=== PATIENT | male | born 1985 | race Caucasian/White ===

== ENCOUNTER 2017-10-30 20:02 | Emergency (ER) | payer SELFPAY ==
[2017-10-30] MEDS ORDERED: IBUPROFEN 800 MG TABLET PO ONE (21:43)
--- NOTE | 2017-10-30 22:10 | RADIOLOGY REPORT (SQ) ---
EXAM DESCRIPTION: KNEE LEFT 3 VIEWS COMPLETED DATE/TIME: 10/30/2017 10:00 pm REASON FOR STUDY: L lateral knee pain COMPARISON: None. NUMBER OF VIEWS: Three views. TECHNIQUE: AP, lateral, and sunrise patella radiographic images acquired of the left knee. LIMITATIONS: None. FINDINGS: MINERALIZATION: Normal. BONES: No acute fracture or dislocation. No worrisome bone lesions. JOINT: No effusion. SOFT TISSUES: No soft tissue swelling. No radio-opaque foreign body. OTHER: No other significant finding. IMPRESSION: NEGATIVE STUDY OF THE LEFT KNEE. NO RADIOGRAPHIC EVIDENCE OF ACUTE INJURY. TECHNICAL DOCUMENTATION: JOB ID: [id number]- All Rights Reserved Reading location - IP/workstation name: [email or web address]
--- NOTE | 2017-10-30 22:31 | ER Document Report ---
ED General - General Chief Complaint: Knee Pain Stated Complaint: KNEE INJURY Time Seen by Provider: 10/30/17 21:36 Mode of Arrival: Ambulatory Information source: Patient TRAVEL OUTSIDE OF THE [place] IN LAST 30 DAYS: No - HPI Notes: Patient is a 32-year-old otherwise healthy male presents emergency department with report of left lateral knee pain that occurred when he fell when he was working in the yard pulling on a root. The patient states he had a varus stress through the left knee and reports left lateral knee pain since that time. He does state the pain seemed to get worse as time progressed, and he actually finished working in the yard after he injured himself. He denies any head injury, neck pain, back pain, numbness, paresthesia or other injury. No hip or ankle pain. Past Medical History - General Information source: Patient - Social History Smoking Status: Current Every Day Smoker Frequency of alcohol use: Occasional Drug Abuse: None Lives with: Family Family History: None Patient has suicidal ideation: No Patient has homicidal ideation: No Renal/ Medical History: Denies: Hx Peritoneal Dialysis Review of Systems - Review of Systems Notes: REVIEW OF SYSTEMS: CONSTITUTIONAL : Denies fever, chills, CARDIOVASCULAR: Denies ankle edema. MUSCULOSKELETAL: Denies back or neck pain or stiffness. SKIN: Denies rash, lesions or sores. NEUROLOGICAL: Denies weakness or paralysis or loss of use of either side. Denies sensory loss, numbness, or tingling. ALL OTHER SYSTEMS REVIEWED AND NEGATIVE. Dictation was performed using [employer] voice recognition software Physical Exam - Vital signs Vitals: Temp Pulse Resp BP Pulse Ox 98.7 F 127 H 18 133/84 H 99 10/30/17 20:35 10/30/17 20:35 10/30/17 20:35 10/30/17 20:35 10/30/17 20:35 - Notes Notes: Exam of the left lower extremity shows nonfocal hip and ankle and foot. The patient has pain to the lateral aspect of the left knee. There is no crepitance or bony deformity. There is some pain on ligamentous stress testing to the lateral aspect but patient has a negative Lockman's. Negative Marycruz' s. No anterior drawer sign. Distally, he is neurovascularly intact. There is no proximal erythema or adenopathy noted. Course - Re-evaluation Re-evalutation: 10/30/17 22:39 Patient was given crutches and a knee immobilizer and ibuprofen. There is no obvious evidence for acute fracture or neurovascular compromise, but I cannot exclude a ligament or meniscus injury with the patient. Orthopedic follow-up as instructed. - Vital Signs Vital signs: Temp Pulse Resp BP Pulse Ox 98.7 F 127 H 18 133/84 H 99 10/30/17 20:35 10/30/17 20:35 10/30/17 20:35 10/30/17 20:35 10/30/17 20:35 Discharge - Discharge Clinical Impression: Sprain of left knee Qualifiers: Encounter type: initial encounter Involved ligament of knee: lateral collateral ligament Qualified Code(s): S83.422A - Sprain of lateral collateral ligament of left knee, initial encounter Condition: Stable Disposition: HOME, SELF-CARE Instructions: Use of Crutches ([facility]), Ice & Elevation ([facility]), Suspected Internal Knee Injury ([facility]), Knee Immobilizing Splint ([facility]) Additional Instructions: Limited activity, unable to bend at the knees and limited time on feet for the next 2 weeks due to knee sprain with possible ligament or meniscus injury. Prescriptions: Ibuprofen [Motrin 800 mg Tablet] 800 mg PO Q8H PRN #30 tab PRN Reason: Forms: Return to Work Referrals: LEMUEL JACOBS DO [ACTIVE STAFF] - 11/13/17
[2017-10-30 22:45] VITALS: BP 139/92
== END 2017-10-30 22:45 | disposition home or self-care (01) ==
LOC: ER 20:02
DX: S83.422A Sprain of lateral collateral ligament of left knee, initial encounter (principal); F17.200 Nicotine dependence, unspecified, uncomplicated; W01.10XA Fall on same level from slipping, tripping and stumbling with subsequent striking against unspecified object, initial encounter; Y92.007 Garden or yard of unspecified non-institutional (private) residence as the place of occurrence of the external cause
CPT/HCPCS: 99283; 73562; L1830

== ENCOUNTER 2019-09-24 13:54 | Emergency (ER) | payer OTHER ==
[2019-09-24 14:36] LABS: APPEARANCE,URINE CLEAR; BILIRUBIN,URINE NEGATIVE (NEGATIVE); COLOR,URINE STRAW; GLUCOSE, URINE NEGATIVE (NEGATIVE); KETONES,URINE NEGATIVE (NEGATIVE); LEUKOCYTE ESTERASE,URINE NEGATIVE (NEGATIVE); NITRITE,URINE NEGATIVE (NEGATIVE); PROTEIN,URINE NEGATIVE (NEGATIVE); URINE SPECIFIC GRAVITY 1.004; UROBILINOGEN,URINE NEGATIVE mg/dL (<2.0)
[2019-09-24 14:51] LABS: URINE AMPHETAMINES SCREEN NEGATIVE; URINE BARBITURATES SCREEN NEGATIVE; URINE BENZODIAZEPINES SCREEN NEGATIVE; URINE COCAINE SCREEN NEGATIVE; URINE MARIJUANA (THC) SCREEN NEGATIVE; URINE METHADONE SCREEN NEGATIVE
[2019-09-24 14:55] LABS: URINE PHENCYCLIDINE SCREEN NEGATIVE
[2019-09-24 14:57] LABS: ABSOLUTE EOSINOPHILS # (AUTO) 0.1 10^3/uL (0.0-0.6); ABSOLUTE LYMPHOCYTES (AUTO) 1.8 10^3/uL (0.5-4.7); ABSOLUTE MONOCYTES (AUTO) 0.5 10^3/uL (0.1-1.4); ABSOLUTE NEUT (AUTO) 5.8 10^3/uL (1.7-8.2); BASOPHILS % (AUTO) 0.4 % (0-2); EOSINOPHILS % (AUTO) 1.7 % (0-6); HEMATOCRIT 50.7 % (37.9-51.0); HEMOGLOBIN 17.9 g/dL (13.5-17.0); MEAN CORPUSCULAR HGB CONC 35.3 g/dL (32.0-36.0); MEAN CORPUSCULAR VOLUME 88 fl (80-97); MONOCYTES % (AUTO) 6.5 % (3-13); PLATELET COUNT 297 10^3/uL (150-450); RED BLOOD COUNT 5.77 10^6/uL (4.35-5.55); RED CELL DISTRIBUTION WIDTH 13.3 % (11.5-14.0); SEGMENTED NEUTROPHILS % (AUTO) 69.4 % (42-78); TOTAL CELLS COUNTED % (AUTO) 100 %; WHITE BLOOD COUNT 8.3 10^3/uL (4.0-10.5)
[2019-09-24 15:17] LABS: ALBUMIN 4.9 g/dL (3.5-5.0); ALCOHOL 274 mg/dL (NONE DETECTED); ALKALINE PHOSPHATASE 134 U/L (38-126); ANION GAP 12 (5-19); ASPARTATE AMINO TRANSFERASE 32 U/L (17-59); BILIRUBIN,DIRECT 0.2 mg/dL (0.0-0.4); BILIRUBIN,TOTAL 0.5 mg/dL (0.2-1.3); BLOOD UREA NITROGEN 12 mg/dL (7-20); CARBON DIOXIDE 24 mmol/L (22-30); CHLORIDE 106 mmol/L (98-107); GLUCOSE 98 mg/dL (75-110); POTASSIUM 4.1 mmol/L (3.6-5.0); TOTAL PROTEIN 8.1 g/dL (6.3-8.2)
[2019-09-24 15:18] LABS: ACETAMINOPHEN < 10 ug/mL (10-30); SALICYLATE < 1.0 mg/dL (2.0-20.0)
[2019-09-24] MEDS ORDERED: NICOTINE 21 MG/24 HR PATCH.TD24 TD ONE (15:25)
--- NOTE | 2019-09-24 15:34 | ER Document Report ---
ED General - General Chief Complaint: Suicidal Ideation Stated Complaint: POSSIBLE SUICIDAL IDEATION Time Seen by Provider: 09/24/19 14:06 TRAVEL OUTSIDE OF THE [place] 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 Patient states he was laid off about 3 weeks ago. He is single and lives with his brother. He drinks in excess of a pint of vodka daily. He is sporadically using cocaine, methamphetamine, and marijuana. He was addicted to opiate pain medications in the past and said that he was admitted to an inpatient detox facility in [facility] over 10 years ago and thereafter was on a Suboxone maintenance program for a number of years. Patient graduated high school and attended about 1 year of college. No service. Endorses intermittent auditory hallucinations but denies any command hallucinations or threatening content. He denies visual hallucinations. Patient is in possession of a shotgun. He says he is increasingly thinking about shooting himself. He has never attempted suicide in the past. - Related Data Allergies/Adverse Reactions: No Known Allergies Allergy (Unverified 10/30/17 22:45) Past Medical History - General Information source: Patient, Emergency Med Personnel - Social History Smoking Status: Current Every Day Smoker Chew tobacco use (# tins/day): No Frequency of alcohol use: Heavy Drug Abuse: Cocaine, Marijuana, Methamphetamine Family History: None Patient has suicidal ideation: Yes Patient has homicidal ideation: No Renal/ Medical History: Denies: Hx Peritoneal Dialysis Review of Systems - Review of Systems Notes: Constitutional: Negative for fever. HENT: Negative for sore throat. Eyes: Negative for visual changes. Cardiovascular: Negative for chest pain. Respiratory: Negative for shortness of breath. Gastrointestinal: Negative for abdominal pain, vomiting or diarrhea. Genitourinary: Negative for dysuria. Musculoskeletal: Negative for back pain. Skin: Negative for rash. Neurological: Negative for headaches, weakness or numbness. 10 point ROS negative except as marked above and in HPI. Physical Exam - Vital signs Vitals: Temp Pulse Resp BP Pulse Ox 97.7 F 95 18 145/95 H 95 09/24/19 15:07 09/24/19 15:07 09/24/19 15:07 09/24/19 15:07 09/24/19 15:07 - Notes Notes: GENERAL: Well-developed well-nourished appearing in no acute distress. Strong odor of alcohol present. SKIN: Good turgor. Flushed. HEAD: Normocephalic atraumatic. EYES: PERRLA. EOMI. Conjunctivae and sclerae clear. EARS: CANALS AND TMS CLEAR. NOSE: CLEAR. MOUTH: Moist mucosa. Good dentition. No stridor or edema. No drooling. NECK: Supple. No masses or thyromegaly. No adenopathy. Carotids 2+ without bruits. No JVD. BACK: Symmetrical without tenderness. CHEST: Respirations unlabored. Breath sounds clear and symmetrical. HEART: Regular rhythm. No murmur gallop or rub. ABDOMEN: Soft nontender without masses, organomegaly or rebound. Bowel sounds normally active. No bruits. GENITALIA: Deferred. EXTREMITIES: No edema. No calf tenderness. Cap refill less than 1.5 seconds. Dorsalis pedis and posterior tibial pulses 3+ and symmetrical. NEUROLOGICAL: GCS 15. Alert and oriented x3. Normal gait. Fluent speech. Cranial nerves II through XII intact. Sensorimotor and cerebellar normal. Normal tone. PSYCHIATRIC: Appropriate affect. Course - Re-evaluation Re-evalutation: 09/24/19 16:19 Behavioral health team obtain information from patient's mother that this man might have possibly had seizures in the past. This did not come up in the medical history that I obtained from him initially. I went back and talk with him further about the issue. He is worked for years in the construction field and says that he has had multiple "spells" that have occurred during times when he became overheated and dehydrated. These have never been identified as a true seizure disorder and he is never been treated with anticonvulsant medication. The patient feels that these episodes are probably attributable to heat prostration and I think this is likely to be the case. 09/24/19 16:21 I have petitioned this patient for IVC. We will need to get his blood alcohol level down below 100 before referral to an inpatient mental health facility. He is otherwise medically clear at this time. - Vital Signs Vital signs: Temp Pulse Resp BP Pulse Ox 97.7 F 95 18 145/95 H 95 09/24/19 15:07 09/24/19 15:07 09/24/19 15:07 09/24/19 15:07 09/24/19 15:07 - Laboratory Result Diagrams: 09/24/19 14:35 09/24/19 14:35 Laboratory results interpreted by me: 09/24/19 09/24/19 14:35 14:35 RBC 5.77 H Hgb 17.9 H Alkaline Phosphatase 134 H Salicylates < 1.0 L Acetaminophen < 10 L Discharge - Discharge Clinical Impression: Suicidal ideation, Major depression with psychotic features, Alcoholism Condition: Stable Disposition: PSYCH HOSP/UNIT
[2019-09-24] MEDS: LORAZEPAM 1 MG TABLET PO PRN ×2 (15:43→21:10)
--- NOTE | 2019-09-24 16:05 | PSYCHOLOGICAL NOTE ---
Psych Note - Psych Note Date seen by psych provider: 09/24/19 Time seen by psych provider: 14:40 Psych Note: Patient is a 34-year-old male who presents to ED via EMS with suicidal ideation. Patient states he was "about to grab my shotgun, put it in my mouth, and pulled the trigger." Patient commented that "I am done with life." Patient reports thoughts of his mom prevented him with completing suicide. Patient reports that he did not have the gun on his person at any time, that the weapon remained in the case. Patient stated "I just want to leave." Patient discussed a [place] Patient spoke about generally being able to "keep my demons at bay, will recently." Patient reports stressors of a recent job loss and loss of freedom as a result of the COVID 19 pandemic. Patient reports mental health diagnoses of depression and anxiety. Patient denies history of bipolar and schizophrenia. Patient reports that he was prescribed Klonopin "back in the day (2011). 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 Aly also prescribed patient's Suboxone. Patient denies current IV heroin use. Patient reports recent ingestion of "shrooms" AKA psilocybin. Patient reports "smoking meth" 6 days ago. Patient denies recent IV heroin use. Patient spoke of having to brains. Patient spoke of one brain being the "happy brain" and the other brain being the "crying brain." Patient occasionally referred to the "crying brain" as "the demon." Patient reports being able to " know what is real and what is not." States the "demon" is the one who "hurts others" and describes himself as "peaceful." Patient denies he would ever hurt anyone else and also denies a history of hurting others. Clinician notes patient patient frequently endorses suicidal ideation, and then discusses how "the strong brain" has more power over the "demon brain" to live. Patient would speak about how he does not want to . Patient denies a history of suicide attempts. The following information was obtained by patient's mother. 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 Mother reports patient has a mental health history of depression and "sleeplessness." Mother denies patient has a history of schizophrenia or bipolar disorder. Mother does report patient has a seizure history and she is concerned for epilepsy. Mother reports there has been no neurological exam. Mother describes patient as someone who "spirals quickly when things are good." Mother states patient becomes depressed when he is not able to "do something." Mother describes patient as housing insecure as he awaits for the COVID 19 pandemic clear so he can return to work. Mother reports patient has a history of alcohol and substance abuse. Mother reports patient not engaged in IV heroin use "for years." Patient was informed of his acceptance by [facility]. Patient was informed of transportation process. Patient ported no questions or concerns. Patient is alert and oriented to person, place, time and circumstance. Mood is labile with congruent affect evidenced by patient engaging appropriately with clinician, patient being tearful, and then euthymic mood. Patient endorses suicidal ideation. Patient denies homicidal ideation. Patient endorses delusions as evidenced by his belief he has 2 brains. Patient endorses command auditory hallucinations; however states he is able to differentiate the difference between lesions and reality. Patient reported experiencing hearing voices during evaluation. Are times that patient laughs, but that is followed by a comment that is reality based. Patient is able to engage appropriately with clinician, and participate in organized, linear conversation. Eye contact is appropriate. Conversational speech is within normal rate, tone, and prosody. Intellectual ability appears to be within average range. Attention and concentration are fair. Insight, judgment and impulse control are currently fair to poor. Impression/Plan: Patient is recommended for IVC. Patient presents to ED via EMS for suicidal ideation . Patient is experiencing acute stressor related to recent layoff due to the COVID 19 pandemic. Patient has been binge drinking in conjunction with methamphetamine and psilocybin use. This time, it is unknown if patient's current presentation is substance-induced or is the result of a mental health concern. Per report from patient and patient's mother, patient has only mental health diagnoses of depression and anxiety. Patient is considered a danger to himself as patient maintains suicidal ideation, is emotional labile, is under the influence of a mind altering substance, and has a blood alcohol is 274. At this time, patient would be unable without care, supervision, and the continued assistance of others to exercise self-control, judgment, and discretion and the conduct of his daily responsibilities. There is reasonable probability of patient suffering serious physical debilitation unless adequate treatment is given. Plan is to transfer to [facility] at 22:00. Dr. Grijalva was consulted on the care and management of this patient;attending physician is in agreement with recommendations and disposition.
[2019-09-24 21:48] VITALS: BP 138/95
--- NOTE | 2019-09-25 09:08 | EKG REPORT ---
SEVERITY:- ABNORMAL ECG - SINUS RHYTHM LEFT ANTERIOR FASCICULAR BLOCK : Confirmed by: Umm Varela MD 25-Sep-2019 09:07:42
== END 2019-09-24 22:19 ==
LOC: ER 13:54
DX: F10.20 Alcohol dependence, uncomplicated (principal); F32.3 Major depressive disorder, single episode, severe with psychotic features; R45.851 Suicidal ideations; F14.10 Cocaine abuse, uncomplicated; F12.10 Cannabis abuse, uncomplicated; F15.10 Other stimulant abuse, uncomplicated; F17.200 Nicotine dependence, unspecified, uncomplicated; R23.2 Flushing
CPT/HCPCS: 36415; 80053; 80307; 81001; 85025; 93005; 93010; 99285

== ENCOUNTER 2019-10-11 23:15 | Emergency (ER) | payer OTHER ==
[2019-10-11] MEDS ORDERED: NICOTINE 14 MG/24 HR PATCH.TD24 TD ONE (23:37)
--- NOTE | 2019-10-11 23:42 | ER Document Report ---
ED General - General TRAVEL OUTSIDE OF THE [place] IN LAST 30 DAYS: No - Related Data Home Medications: Celexa, BuSpar <ANGÉLICA ACOSTA - Last Filed: 10/12/19 00:35> <DEEPTHI SAUER - Last Filed: 10/12/19 15:52> <MAU HERNANDEZ - Last Filed: 10/12/19 16:32> - General Chief Complaint: Suicidal Ideation Stated Complaint: SUICIDAL IDEATIONS Time Seen by Provider: 10/11/19 23:29 Primary Care Provider: [facility] [Outside] - Follow up as needed - HPI Notes: Patient is a 34-year-old male who presents the emergency department for evaluation of auditory hallucinations and suicidal ideation. The patient states he was at home and he heard a growling. He states it sounds like "the ghost dog in the closet from ghost busters." He states he called his dog, Delilah, who he believes scared to the ghost dog away. He states then that he was thinking about taking a shotgun to himself, to end all of his pain. The patient then states to me that he does not have any pain, but he is still thinking of killing himself. He was recently seen in this facility, IVC was placed, and the devin ent was sent to [place]. He was started on Celexa and BuSpar. He states he has been taking those as prescribed. He states he has been abstaining from drug use, but admits he has been drinking "less than 1/5" of vodka every day. (ANGÉLICA ACOSTA) - Related Data Allergies/Adverse Reactions: No Known Allergies Allergy (Unverified 10/30/17 22:45) Past Medical History - General Information source: Patient - Social History Smoking Status: Current Every Day Smoker Frequency of alcohol use: Heavy Family History: None Renal/ Medical History: Denies: Hx Peritoneal Dialysis Psychiatric Medical History: Reports: Hx Depression <ANGÉLICA ACOSTA - Last Filed: 10/12/19 00:35> Review of Systems - Review of Systems Neurological/Psychological: See HPI -: Yes All other systems reviewed and negative <ANGÉLICA ACOSTA - Last Filed: 10/12/19 00:35> Physical Exam <ANGÉLICA ACOSTA - Last Filed: 10/12/19 00:35> - Vital signs Vitals: Temp 98.3 F 10/11/19 23:15 - Notes Notes: This is a 34-year-old gentleman appears his stated age. He is cooperative with examiner. His mood is labile, he will be pleasant cooperative, then tearful, then guarded. Vital signs reviewed, please refer to chart. Head is normocephalic, atraumatic. Pupils equal round, reactive to light. Neck is supple without meningismus. Heart is regular rate and rhythm. Lungs are clear to auscultation bilaterally. Abdomen is soft, nontender, normoactive bowel sounds throughout. Extremities without cyanosis, clubbing. Posterior calves are nontender. Peripheral pulses are equal. Skin is warm and dry. Patient is awake, alert, neurological exam is nonfocal. (ANGÉLICA ACOSTA) Course - Laboratory Result Diagrams: 10/11/19 23:44 10/11/19 23:44 <ANGÉLICA ACOSTA - Last Filed: 10/12/19 00:35> - Laboratory Result Diagrams: 10/11/19 23:44 10/11/19 23:44 <DEEPTHI SAUER - Last Filed: 10/12/19 15:52> - Laboratory Result Diagrams: 10/11/19 23:44 10/11/19 23:44 <MAU HERNANDEZ - Last Filed: 10/12/19 16:32> - Re-evaluation Re-evalutation: 10/11/19 23:41 Patient presents to the emergency department for evaluation. He has a longstanding history of substance abuse, and has recently been started on antidepressants and medicine for anxiety. This does not fact increase his risk of suicidal thoughts. He evidently does have access to a shotgun and a plan to kill himself. I will place 24-hour hold order, awaiting labs. 10/12/19 00:35 Patient's laboratory investigations revealed an elevated blood alcohol of 277, positive marijuana drug screen, but otherwise was largely unremarkable. Once sober, patient will be medically cleared. 24-hour hold order placed. Awaiting psychosocial evaluation. (ANGÉLICA ACOSTA) 10/12/19 16:28 Behavioral team has evaluated this patient and have talked with family members. Brother is willing to take him home and will secure firearms so he has no access to this. Patient is no longer expressing any suicidal ideation. They have arranged outpatient detox referral. Behavioral services recommended discontinuation of Celexa and they want him to start Effexor or 37.5 mg twice daily and BuSpar 5 mg twice daily. These prescriptions are written and patient will be discharged home with his brother at this time. (MAU HERNANDEZ) - Vital Signs Vital signs: Temp Pulse Resp BP Pulse Ox 98.4 F 108 H 18 139/91 H 95 10/12/19 10:58 10/12/19 10:58 10/12/19 10:58 10/12/19 10:58 10/12/19 10:58 - Laboratory Laboratory results interpreted by me: 10/11/19 10/11/19 23:44 23:44 Sodium 136.7 L AST 63 H Alkaline Phosphatase 127 H Urine Blood SMALL H Salicylates < 1.0 L Acetaminophen < 10 L - EKG Interpretation by Me Additional EKG results interpreted by me: 10/11/19 23:42 Sinus mechanism with a rate of 94 bpm. Left axis deviation. Left anterior fascicular block. Nonspecific ST changes, but no ST elevation concerning for ischemia or infarction. No change compared to prior study earlier this month. (ANGÉLICA ACOSTA) Discharge <ANGÉLICA ACOSTA - Last Filed: 10/12/19 00:35> <DEEPTHI SAEUR - Last Filed: 10/12/19 15:52> <MAU HERNANDEZ - Last Filed: 10/12/19 16:32> - Discharge Clinical Impression: Suicidal ideation Alcohol intoxication Qualifiers: Complication of substance-induced condition: uncomplicated Qualified Code(s): F 10.920 - Alcohol use, unspecified with intoxication, uncomplicated Condition: Stable Disposition: HOME, SELF-CARE Additional Instructions: You have been evaluated by both medical and behavioral health teams for chronic alcohol abuse and suicidal ideation and have been deemed appropriate for discharge. While in the emergency department you received the following services: Medical screening and assessment, nursing services, dietary services, pharmacological services, one-on-one counseling and/or psychotherapy, environme ntal services, and continuous observation by a patient safety equipment tester. Medication recommendations have been have been provided and are as follows: Buspar 5MG, twice a day; Add Effexor 37.5MG, twice a day; Discontinue home medication of Celexa. Please take your medications as prescribed as the medi cation appear to have stabilized your mood and overall mental health. It is important that you do not stop these medications without discussing with your prescribing physician. You are reminded that mixing alcohol, marijuana, and prescription medication can have adverse effects on your mental health. You are highly encouraged to abstain from alcohol and illicit substance use. You have been provided with an outpatient mental health resource list. You are highly encouraged to select a provider of your choosing and establish mental health services to learn how to accurately interpret your environment, thoughts, and emotions and to cultivate healthy coping skills during times of emotional distr ess. ACUTE ALCOHOL INTOXICATION and ALCOHOL ABUSE: Your evaluation revealed very high levels of alcohol. You can from drinking a large amount of alcohol rapidly! Further, there's the risk of falls, traffic accidents, and fights. A high portion (about 50 percent) of the serious injuries seen in hospital emergency rooms are caused by alcohol. Alcohol overdosage is usually due to an underlying emotional or psychiatric problem. You may benefit from counselling. If "binge" drinking is an ongoing problem for you, or if you drink ANY AMOUNT of alcohol EVERY day, you most likely have a tendency to alcoholism. You should avoid alcohol totally. We can refer you for treatment. Persons with alcohol problems are often also prone to other addictions -- you should discuss any use of medications or drugs with the doctor. You should be watched at home for the next several hours by someone who has not been drinking. Get extra fluids for the next 24 hours. Call the doctor if there is repeated vomiting, increasing headache, decreasing level of alertness, or any other worsening. CHRONIC ALCOHOLISM and ALCOHOL ABUSE: Your evaluation reveals evidence of chronic alcoholism, an addiction to alcohol. The tendency to alcoholism may be inherited. Chronic use of alcohol weakens muscles, causes fatty deposits in the liver, damages the stomach, makes you more prone to infections, and can cause defects in unborn children. In the long run, brain atrophy and cirrhosis of the liver result. You are also at greater risk for certain types of cancer, such as cancer of the mouth, throat, stomach, and liver. Counselling services are available to help you. In-hospital treatment programs often help. Support groups such as Alcoholics Anonymous can be very useful in beating this addiction. Your physician can make a referral for you. As alcoholics often are prone to other addictions, you should discuss your use of any other medications with the doctor. SUICIDAL IDEATION: Suicidal ideation is a common medical term for thoughts about suicide, which may be as detailed as a formulated plan, without the suicidal act itself. Although most people who undergo suicidal ideation do not commit suicide, some go on to make suicide attempts. The range of suicidal ideation varies greatly from fleeting to detailed planning, role playing, and unsuccessful attempts. While thoughts about suicide are common, most people do not carry out serious actions to commit suicide. Based upon your evaluation and discussion with you, we do not believe you are currently at risk to act upon your thoughts of suicide. You have agreed to return to the Emergency Department, at any time, if you feel inclined to act upon your suicidal thoughts. AT ANY TIME, IF YOUR SYMPTOMS CHANGE SIGNIFICANTLY OR WORSEN OR YOU DEVELOP NEW SYMPTOMS, RETURN TO THE EMERGENCY DEPARTMENT IMMEDIATELY FOR RE-EVALUATION. Stop taking Celexa New prescriptions as follows: Effexor or 37.5 mg twice daily BuSpar 5 mg twice daily Prescriptions: Buspirone HCl [Buspar 10 mg Tablet] 5 mg PO BID 30 Days #60 tablet Venlafaxine HCl ER [Effexor Xr 37.5 mg Cap.sr] 37.5 mg PO BID 30 Days #60 cap.sr.24h Referrals: [facility] [Outside] - Follow up as needed
[2019-10-12 00:02] LABS: ABSOLUTE BASOPHILS # (AUTO) 0.1 10^3/uL (0.0-0.2); ABSOLUTE EOSINOPHILS # (AUTO) 0.1 10^3/uL (0.0-0.6); ABSOLUTE LYMPHOCYTES (AUTO) 1.9 10^3/uL (0.5-4.7); ABSOLUTE MONOCYTES (AUTO) 0.5 10^3/uL (0.1-1.4); ABSOLUTE NEUT (AUTO) 4.4 10^3/uL (1.7-8.2); BASOPHILS % (AUTO) 0.8 % (0-2); EOSINOPHILS % (AUTO) 1.4 % (0-6); HEMATOCRIT 47.5 % (37.9-51.0); HEMOGLOBIN 16.8 g/dL (13.5-17.0); MEAN CORPUSCULAR HEMOGLOBIN 31.6 pg (27.0-33.4); MEAN CORPUSCULAR HGB CONC 35.4 g/dL (32.0-36.0); MEAN CORPUSCULAR VOLUME 89 fl (80-97); MONOCYTES % (AUTO) 7.4 % (3-13); PLATELET COUNT 153 10^3/uL (150-450); RED BLOOD COUNT 5.33 10^6/uL (4.35-5.55); RED CELL DISTRIBUTION WIDTH 13.7 % (11.5-14.0); SEGMENTED NEUTROPHILS % (AUTO) 63.4 % (42-78); TOTAL CELLS COUNTED % (AUTO) 100 %; WHITE BLOOD COUNT 6.9 10^3/uL (4.0-10.5)
[2019-10-12 00:18] LABS: APPEARANCE,URINE CLEAR; BILIRUBIN,URINE NEGATIVE (NEGATIVE); COLOR,URINE STRAW; GLUCOSE, URINE NEGATIVE (NEGATIVE); KETONES,URINE NEGATIVE (NEGATIVE); LEUKOCYTE ESTERASE,URINE NEGATIVE (NEGATIVE); NITRITE,URINE NEGATIVE (NEGATIVE); PROTEIN,URINE NEGATIVE (NEGATIVE); URINE SPECIFIC GRAVITY 1.004; UROBILINOGEN,URINE NEGATIVE mg/dL (<2.0)
[2019-10-12 00:31] LABS: ALCOHOL 277 mg/dL (NONE DETECTED); ALKALINE PHOSPHATASE 127 U/L (38-126); ANION GAP 13 (5-19); ASPARTATE AMINO TRANSFERASE 63 U/L (17-59); BILIRUBIN,TOTAL 0.6 mg/dL (0.2-1.3); BLOOD UREA NITROGEN 10 mg/dL (7-20); CALCIUM 9.3 mg/dL (8.4-10.2); CARBON DIOXIDE 23 mmol/L (22-30); CHLORIDE 101 mmol/L (98-107); GLUCOSE 91 mg/dL (75-110); POTASSIUM 3.6 mmol/L (3.6-5.0); TOTAL PROTEIN 7.9 g/dL (6.3-8.2)
[2019-10-12 00:32] LABS: URINE AMPHETAMINES SCREEN NEGATIVE; URINE BARBITURATES SCREEN NEGATIVE; URINE BENZODIAZEPINES SCREEN NEGATIVE; URINE COCAINE SCREEN NEGATIVE; URINE METHADONE SCREEN NEGATIVE; URINE PHENCYCLIDINE SCREEN NEGATIVE
[2019-10-12 00:33] LABS: ACETAMINOPHEN < 10 ug/mL (10-30); SALICYLATE < 1.0 mg/dL (2.0-20.0); URINE MARIJUANA (THC) SCREEN UNCONFIRMED POSITIVE
[2019-10-12] MEDS ORDERED: MELATONIN 5 MG TABLET PO ONE (01:22)
[2019-10-12] MEDS ORDERED: LORAZEPAM 0.5 MG TABLET PO ONE (03:45)
--- NOTE | 2019-10-12 08:19 | EKG REPORT ---
SEVERITY:- ABNORMAL ECG - SINUS RHYTHM LEFT ANTERIOR FASCICULAR BLOCK PROBABLE LEFT VENTRICULAR HYPERTROPHY : Confirmed by: Umm Varela MD 12-Oct-2019 08:18:28
[2019-10-12] MEDS ORDERED: LORAZEPAM 1 MG TABLET PO ONE (12:18)
[2019-10-12 16:52] VITALS: BP 148/98
--- NOTE | 2019-10-12 19:37 | PSYCHOLOGICAL NOTE ---
Psych Note - Psych Note Date seen by psych provider: 10/12/19 Time seen by psych provider: 12:35 Psych Note: Patient is a 34-year-old male who presents to ED via EMS with concerns for alcohol intoxication and suicidal ideation. Patient is known to behavioral health. Patient was sent to [facility] via IVC petition on 09/24/2019 for similar concerns. Patient reports daily alcohol use and use of marijuana. Patient reports stressors with being laid off from his job due to the COVID 19 pandemic, having to be supported by his brother, and frustration with the process of filing for unemployment. Patient denied he said he was suicidal. Patient stated he inf ormed emergency service personnel that he had "thoughts" of suicide via shotgun. Patient states it was "just me being stupid." Patient denies access to shotgun and continued that his brother has the shotgun not only locked up but broken apart into different pieces to which she has no access. Patient states he "just wanted attention," and "I was not ever really going to do it." Patient became t earful as he woke of arguing with his brother, which resulted in patient's ETOH use on an empty stomach. When asked what has changed since yesterday patient replied that "I sobered up." Patient denies auditory and visual hallucinations when not under the influence of substances. Patient verbalized a believe that the dosage of his medications he received at [facility] are "too much." Patient was alert and oriented to person, place, circumstance, and situation. Mood was euthymic and cooperative and affect was mood congruent and with full expression. Patient denied suicidal / homicidal ideation. Patient denied current auditory /visual hallucinations and there was no evidence of delusional thought content. Thought processes were linear, rational, and organized. Conversational speech was within normal limits for rate, tone, and prosody. Eye contact was well maintained. Intellectual abilities were estimated within the average range. Attention and concentration was good, and insight, judgment, and impulse control was fair. Medication recommendation by consulting psychiatrist: 1. Discontinue Celexa 2. Decrease Buspar to 5MG, twice a day 3. Add Effexor 37.5MG, twice a day Diagnosis: 1. Alcohol Abuse Therapeutic Intervention: Psycho-education on ETOH addiction; Focus on adaptive coping and positive ways to manage stress; Focus on good communication and adaptive stress relief; Psychoedcucation on mixing prescription medications, THC, and ETOH; Focus on health, wellness and good nutrition. Impression / Plan: Patient is recommended for rescind of 244-hour petition for evaluation and is cleared from acute psychiatric services. Medication recommendations have been provided. Presents to ED via EMS with concerns for suicidal ideation while intoxicated. Patient has a history of maladaptive coping with substances. Patient was recently discharged from [facility] for ETOH abuse. Patient continues to experience emotional distress related to being laid off from his employer due to the COVID-19 pandemic. Patient has been frustrated by the lack of responsiveness from the [place] unemployment assistance program. Patient expressed a readiness to engage in mental health services to better his life circumstances and his relationship with his family, especially his brother. 1. Patient was provided psychoeducation on EtOH addiction 2. Patient was provided psychoeducation on mixing prescription medications with marijuana and EtOH 3. Clinician utilized problem-solving techniques to assist patient with gaining insight into how to resolve his current circumstances. Patient verbalized insights such as having his brother join him in sessions, adjusting medications, and healthy coping strategies when frustrated. 4. Clinician discussed patient's engagement with law enforcement and possible have consequences consequences, include patient not being able to return to [place] to work once the COVID-19 pandemic stay at home order has been lifted. 5. Collaborated with patient's brother for discharge 6. Patient was planed and provided a mental health resource list Dr. Grijalva was consulted on the care and management of this patient; attending physician is in agreement with recommendations and disposition.
== END 2019-10-12 16:52 | disposition home or self-care (01) ==
LOC: ER 23:15
DX: R45.851 Suicidal ideations (principal); F10.920 Alcohol use, unspecified with intoxication, uncomplicated; R44.0 Auditory hallucinations; F17.200 Nicotine dependence, unspecified, uncomplicated
CPT/HCPCS: 93005; 36415; 80307 ×4; 85025; 80053; 81001; 93010; J3490; 99285